=== PATIENT | male | born 1990 | race American Indian/Alaskan Native ===

== ENCOUNTER 2016-07-10 22:10 | Emergency (ER) | payer MEDICAID ==
[2016-07-10 22:38] VITALS: BP 110/79
[2016-07-10 23:10] LABS: Basophils % (Auto) 0.5 % (0.0-1.8); Eosinophils % (Auto) 3.9 % (0.0-4.3); Hemoglobin 12.5 gm/dl (11.8-15.2); Mean Corpuscular HGB Conc 31 % (32-34); Mean Corpuscular Hemoglobin 22 pg (28-32); Mean Corpuscular Volume 70 fl (84-94); Platelet Count 138 K/mm3 (140-440); Red Blood Count 5.69 M/mm3 (3.65-5.03); Red Cell Distribution Width 14.4 % (13.2-15.2)
--- NOTE | 2016-07-10 23:15 | Emergency Department Report ---
HPI - General Chief Complaint: Allergic Reaction Time Seen by Provider: 07/10/16 23:03 - HPI HPI: [facility] Past Medical Hx - Past Medical History Previous Medical History?: Yes Hx Psychiatric Treatment: Yes (schizophrenia, bipolar.) Additional medical history: hypothryoid, ocd, autism. - Surgical History Past Surgical History?: No - Social History Smoking Status: Never Smoker Substance Use Type: None - Medications Home Medications: Home Medications Medication Instructions Recorded Confirmed Last Taken Type ARIPiprazole [Abilify TAB] 5 mg PO DAILY 02/21/14 02/21/14 02/16/14 History LORazepam [Lorazepam] 1 mg PO Q8H PRN 02/21/14 02/21/14 02/16/14 History Levothyroxine [Synthroid] 50 mcg PO QAM 02/21/14 02/21/14 02/16/14 History ED Review of Systems ROS: Stated complaint: MH EVAL Other details as noted in HPI Physical Exam - Physical Exam Vital Signs: Vital Signs 07/10/16 22:33 Temperature 97.8 F Pulse Rate 84 Respiratory 16 Rate Blood Pressure 110/79 Blood Pressure 110/79 [Left] O2 Sat by Pulse 99 Oximetry ED Course Vital Signs 07/10/16 22:33 Temperature 97.8 F Pulse Rate 84 Respiratory 16 Rate Blood Pressure 110/79 Blood Pressure 110/79 [Left] O2 Sat by Pulse 99 Oximetry ED Medical Decision Making - Lab Data Result diagrams: 07/10/16 22:56 07/10/16 22:56 Critical care attestation.: If time is entered above; I have spent that time in minutes in the direct care of this critically ill patient, excluding procedure time. ED Disposition Disposition: ELOPED Condition: Undetermined Referrals: PRIMARY CARE, [Primary Care Provider] - 3-5 Days
[2016-07-10 23:30] LABS: Alanine Aminotransferase 16 units/L (7-56); Albumin 4.1 g/dL (3.9-5); Albumin/Globulin Ratio 1.6 %; Alkaline Phosphatase 62 units/L (35-129); Anion Gap 18 mmol/L; BUN/Creatinine Ratio 15.83; Bilirubin,Total 0.2 mg/dL (0.1-1.2); Blood Urea Nitrogen 19 mg/dL (9-20); Calcium 9.2 mg/dL (8.4-10.2); Carbon Dioxide 24 mmol/L (22-30); Chloride 99.4 mmol/L (98-107); Glucose 108 mg/dL (75-100); Lipase 18 units/L (13-60); Potassium 3.4 mmol/L (3.6-5.0); Sodium 138 mmol/L (137-145); Total Protein 6.7 g/dL (6.3-8.2)
--- NOTE | 2016-07-11 00:16 | ED Elopement Review ---
ED Pt Elopement review - Results review Lab results: Laboratory Tests 07/10/16 07/10/16 22:56 22:56 WBC 5.0 RBC 5.69 H Hgb 12.5 Hct 40.0 MCV 70 L MCH 22 L MCHC 31 L RDW 14.4 Plt Count 138 L Lymph % (Auto) 33.6 Schleicher % (Auto) 7.8 H Eos % (Auto) 3.9 Baso % (Auto) 0.5 Lymph # 1.7 Schleicher # 0.4 Eos # 0.2 Baso # 0.0 Seg Neutrophils % 54.2 Seg Neutrophils # 2.7 Sodium 138 Potassium 3.4 L Chloride 99.4 Carbon Dioxide 24 Anion Gap 18 BUN 19 Creatinine 1.2 Estimated GFR > 60 BUN/Creatinine Ratio 15.83 Glucose 108 H Calcium 9.2 Total Bilirubin 0.2 AST 17 ALT 16 Alkaline Phosphatase 62 Total Protein 6.7 Albumin 4.1 Albumin/Globulin Ratio 1.6 Lipase 18 - Call Back decision Pt Call Back Decision: Call pt to return to ED [facility] (patient not in room. left voice mail at listed number for immediate return)
[2016-07-11 00:33] LABS: Bilirubin,Urine NEG (Negative); Blood,Urine NEG (Negative); Ketones,Urine NEG (Negative); Leukocyte Esterase,Urine NEG (Negative); Mucus,Urine FEW /HPF; Nitrite,Urine NEG (Negative); Protein,Urine <15 mg/dL mg/dL (Negative); Urobilinogen,Urine < 2.0 mg/dL (<2.0)
== END 2016-07-11 00:22 | disposition left against medical advice (07) ==
LOC: ED 22:10
DX: T78.40XA Allergy, unspecified, initial encounter (principal); F20.9 Schizophrenia, unspecified; F31.9 Bipolar disorder, unspecified; E03.9 Hypothyroidism, unspecified; Y92.9 Unspecified place or not applicable
CPT/HCPCS: 36415; 80053; 81001; 83690; 85025; 99283